=== PATIENT | female | born 1965 | race American Indian/Alaskan Native ===

== ENCOUNTER 2018-11-09 15:14 | Emergency (ER) | payer OTHER ==
[2018-11-09 15:38] VITALS: BP 141/79
--- NOTE | 2018-11-09 15:41 | Event Note ---
ED Screening Note Date of service: 11/09/18 Time: 15:36 ED Screening Note: This is a 52 y.o. F. that presents to the ER with generalized pruritic rash for 1 week. Patient states she changed laundry detergent a few weeks ago and rash increasing. 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 This initial assessment/diagnostic orders/clinical plan/treatment(s) is/are subject to change based on patients health status, clinical progression and re- assessment by fellow clinical providers in the ED. Further treatment and workup at subsequent clinical providers discretion. Patient/guardian urged not to elope from the ED as their condition may be serious if not clinically assessed and managed. Initial orders include:
[2018-11-09] MEDS ORDERED: dexAMETHasone 20 MG/5 ML VIAL IV ONE (17:33)
[2018-11-09] MEDS ORDERED: FAMOTIDINE 20 MG TAB PO ONE (17:33)
[2018-11-09] MEDS ORDERED: dexAMETHasone 20 MG/5 ML VIAL IM ONE (17:41)
[2018-11-09] MEDS ORDERED: hydrOXYzine HCL 25 MG TAB PO ONE (18:00)
--- NOTE | 2018-11-09 18:02 | Emergency Department Report ---
- General Chief complaint: Allergic Reaction Stated complaint: ALLERGIC REACTION Time Seen by Provider: 11/09/18 15:36 Source: patient Mode of arrival: Ambulatory Limitations: No Limitations - History of Present Illness Initial comments: Patient is a 52-year-old female who presents to the emergency room with complaints of worsening eczema for the last week. States that she changed her laundry detergent and has had increase irritation of her eczema with itching and burning. She states that she uses clobetasol and hydrocortisone for her eczema. States she has an appointment with her health information assistant on Saturday (november 11). Patient states she has a past history of asthma and ulcerative colitis. pt states she has an allergy to penicillin. Patient states that she went through menopause already. - Related Data Previous Rx's Medication Instructions Recorded Last Taken Type Lidocaine [Lidocaine GEL] 30 gm TP BID PRN #1 gel..gram. 11/09/18 Unknown Rx Allergies Allergy/AdvReac Type Severity Reaction Status Date / Time Latex, Natural Rubber Allergy Rash Verified 11/09/18 15:28 Penicillins Allergy Rash Verified 11/09/18 15:28 Abscess Boil HPI - HPI Chief Complaint: Allergic Reaction Stated Complaint: ALLERGIC REACTION Time Seen by Provider: 11/09/18 15:36 Home Medications: Previous Rx's Medication Instructions Recorded Last Taken Type Lidocaine [Lidocaine GEL] 30 gm TP BID PRN #1 gel..gram. 11/09/18 Unknown Rx Allergies/Adverse Reactions: Allergies Allergy/AdvReac Type Severity Reaction Status Date / Time Latex, Natural Rubber Allergy Rash Verified 11/09/18 15:28 Penicillins Allergy Rash Verified 11/09/18 15:28 ED Review of Systems ROS: Stated complaint: ALLERGIC REACTION Other details as noted in HPI Comment: All other systems reviewed and negative ED Past Medical Hx - Past Medical History Previous Medical History?: Yes Hx Hypertension: Yes Hx Asthma: Yes Additional medical history: Ulcerative colitis, Eczema - Surgical History Past Surgical History?: Yes Additional Surgical History: ovarian cyst surgery - Social History Smoking Status: Never Smoker Substance Use Type: Alcohol - Medications Home Medications: Home Medications Medication Instructions Recorded Confirmed Last Taken Type Lidocaine [Lidocaine GEL] 30 gm TP BID PRN #1 gel..gram. 11/09/18 Unknown Rx ED Physical Exam - General Limitations: No Limitations General appearance: alert, in no apparent distress - Head Head exam: Present: atraumatic, normocephalic - Eye Eye exam: Present: normal appearance - ENT ENT exam: Present: mucous membranes moist - Respiratory Respiratory exam: Present: normal lung sounds bilaterally. Absent: respiratory distress, wheezes, rales, rhonchi, stridor, chest wall tenderness, accessory muscle use, decreased breath sounds, prolonged expiratory - Cardiovascular Cardiovascular Exam: Present: regular rate, normal rhythm, normal heart sounds. Absent: systolic murmur, diastolic murmur, rubs, gallop - Neurological Exam Neurological exam: Present: alert, oriented X3 - Psychiatric Psychiatric exam: Present: normal affect, normal mood - Skin Skin exam: Present: warm, dry, other (several areas of hyperpigmentation and dry skin and hyperpigmented papules to the hands, back, chest, no blistering, no skin denuding, no necrosis) ED Course Vital Signs 11/09/18 15:36 Temperature 98.4 F Pulse Rate 78 Respiratory 18 Rate Blood Pressure 141/79 O2 Sat by Pulse 98 Oximetry ED Medical Decision Making - Medical Decision Making Patient is a 52-year-old female who presents to the emergency room with complaints of worsening eczema for the last week. States that she changed her laundry detergent and has had increase irritation of her eczema with itching and burning. She states that she uses clobetasol and hydrocortisone for her eczema. States she has an appointment with her health information assistant on Saturday (november 11). Patient states she has a past history of asthma and ulcerative colitis. pt states she has an allergy to penicillin. Patient states that she went through menopause already. VSS. on exam: several areas of hyperpigmentation and dry skin and hyperpigmented papules to the hands, back, chest, no blistering, no skin denuding, no necrosis. appears to have exacerbation of her eczema. Patient given hydroxyzine, Pepcid, dexamethasone injection while in the emergency department. pt states her symptoms feel much improved. Patient given prescript ion for lidocaine ointment. discussed to use medication as prescribed. Advised patient to continue to use her hydroxyzine as needed for itching and may take Pepcid [id number]. Discussed the patient to please keep her appointment with her health information assistant on Saturday. Return to the emergency room for any new or worsening symptoms. Critical care attestation.: If time is entered above; I have spent that time in minutes in the direct care of this critically ill patient, excluding procedure time. ED Disposition Clinical Impression: Eczema Qualifiers: Eczema type: unspecified Qualified Code(s): L30.9 - Dermatitis, unspecified Allergic reaction Qualifiers: Encounter type: initial encounter Qualified Code(s): T78.40XA - Allergy, unspecified, initial encounter Disposition: TO HOME OR SELFCARE Is pt being admited?: No Does the pt Need Aspirin: No Condition: Stable Instructions: Eczema (ED) Additional Instructions: use medication as prescribed. continue to use her hydroxyzine as needed for itching and may take Pepcid [id number]. please keep your appointment with your health information assistant on Saturday. Return to the emergency room for any new or worsening symptoms. use a non scented sensitive skin detergent and soap. Prescriptions: Lidocaine [Lidocaine GEL] 30 gm TP BID PRN #1 gel..gram. PRN Reason: itching/burning Referrals: your, health information assistant [Other] - 2-3 Days Time of Disposition: 18:17 Print Language: GREEK
== END 2018-11-09 18:32 | disposition home or self-care (01) ==
LOC: ED 15:14
DX: T78.40XA Allergy, unspecified, initial encounter (principal); L30.9 Dermatitis, unspecified; I10 Essential (primary) hypertension; J45.909 Unspecified asthma, uncomplicated; Z88.0 Allergy status to penicillin; Z91.040 Latex allergy status; Z79.899 Other long term (current) drug therapy; X58.XXXA Exposure to other specified factors, initial encounter
CPT/HCPCS: 96372; 99282; J1100